=== PATIENT | male | born 1990 | race Caucasian/White ===

== ENCOUNTER 2018-08-04 11:35 | Outpatient (REF) | payer BC, SELFPAY ==
[2018-08-04 13:14] LABS: COMMENT (LAB VIEW ONLY) 148.64 mg/dL; Microalb ug/mg Crea 4.4 ug/mg Cr
== END 2018-08-04 11:55 ==
LOC: NCHCN 11:35
PROVIDERS: PCP Family Medicine; Visit Provider Family Medicine
DX: E11.9 Type 2 diabetes mellitus without complications (principal)
CPT/HCPCS: 82043; 82570

== ENCOUNTER 2019-08-21 18:26 | Outpatient (REF) | payer BC, SELFPAY ==
[2019-08-21 19:35] LABS: COMMENT (LAB VIEW ONLY) 56.02 mg/dL; Microalb ug/mg Crea 4.8 ug/mg Cr
== END 2019-08-21 18:46 ==
LOC: NCHCN 18:26
PROVIDERS: PCP Family Medicine; Visit Provider Family Medicine
DX: E11.319 Type 2 diabetes mellitus with unspecified diabetic retinopathy without macular edema (principal)
CPT/HCPCS: 82043; 82570

== ENCOUNTER 2021-08-20 15:24 | Outpatient (REF) | payer BC, SELFPAY ==
--- OUTSIDE RECORDS SUMMARY | 2021-08-20 15:33 | XMS_ITS ---
:1990 Author Care Team Providers Name Role Phone TESS Keira RICKS Primary Care Provider [phone] [facility] Primary Care Provider [phone] Allergies Code Code System Name Reaction Severity Status Onset 123936 RxNorm House Dust ? ? Active ? 5640 RxNorm Ibuprofen Anaphylaxis ? Active ? Medications Name Status Start Date Stop Date ? ? Accu-Chek Guide test strips Active ? Not available TEST FOUR TIMES A DAY amoxicillin 875 mg-potassium Completed ? clavulanate 125 mg tablet azithromycin 250 mg tablet Completed ? 01/28 Breo Ellipta 100 mcg-25 mcg/dose powder for inhalation Active ? Not available INHALE 1 PUFF BY MOUTH DAILY budesonide 0.5 mg/2 mL suspension for nebulization Active ? Not available USE 1 RESPULE IN SINUS RINSE TWICE DAILY cefpodoxime 200 mg tablet Completed ? 2018 ciprofloxacin 500 mg tablet Completed ? 07/05 Dulera 200 mcg-5 mcg/actuation HFA aerosol inhaler Completed 02/05/2017 03/07/2017 2 puffs Puff: bid - twice daily Dupixent 300 mg/2 mL Active ? Not availab le subcutaneous syringe epinephrine 0.3 mg/0.3 mL Active ? Not av ailable injection, auto-injector FreeStyle Willie 14 Day Sensor kit Active ? Not available USE DIRECTED EVERY 14 DAYS Glucagon Emergency Kit 1 mg Active ? Not available solution for injection Humalog U-100 Insulin 100 unit/mL subcutaneous solution Active ? Not available INJECT CONTINUOUSLY VIA PUMP AT 125 UNITS mupirocin 2 % topical ointment Active ? N ot available APPLY TOPICALLY DIRECTED TWO TIMES A DAY [id number] 3.5 Completed ? 10/28/2018 mg-10,000 unit/mL-1 % ear drops,susp Nucala 100 mg subcutaneous solution Completed ? 10/28/2018 Inject 100 mg every 4 weeks by subcutaneous route. OneTouch Ultra Blue Test Strip Active ? N ot available TEST BLOOD GLUCOSE FOUR TIMES A DAY oxycodone 5 mg tablet Completed ? 10/28/2018 prednisone 10 mg tablet Completed ? 07/22/19 19 prednisone 20 mg tablet Completed ? 07/22/19 19 ProAir HFA 90 mcg/actuation Active ? Not available aerosol inhaler Spiriva Respimat 1.25 mcg/actuation solution for inhalation Completed 01/29/2017 03/26/2017 2 (two) Puff Puff: daily TRUEplus Insulin 1 mL 31 gauge x Active ? Not available 11/17 syringe Trulicity 0.75 mg/0.5 mL subcutaneous pen injector Active ? Not available INJECT 1 PEN SUBCUTANEOUSLY ONCE A WEEK Problems Name Status Onset Date Source ? Nasal Polyp Active 01/24/2018 ? Allergic Rhinitis Active 01/24/2018 ? Pneumonia Active 01/24/2018 ? Pneumonitis Active 01/24/2018 ? Dyspnea Active 01/24/2018 ? Tomography - Chest Abnormal Active 01/24/2018 ? Asthma Active ? History Tropical Pulmonary Eosinophilia Active ? History Placentography Abnormal Unknown ? History Procedure by Method Active ? History Procedures None recorded. Results Lab Results None recorded. Past Encounters None recorded. Social History Tobacco Smoking Status Never Smoker Vaccine List None recorded. Plan of Care Reminders Provider Appointments None ? ? recorded. Lab None ? ? recorded. Referral None ? ? recorded. Procedures None ? ? recorded. Surgeries None ? ? recorded. Imaging None ? ? recorded. Vitals 10/28/2018 03:30PM Office 30 Height Weight BMI Blood Pressure 175.26 cm 95.85 kg 31.2 kg/m2 126/60 mm[Hg] 07/22/2018 01:00PM Office 30 Height Weight BMI Blood Pressure 175.26 cm 93.4 kg 30.4 kg/m2 128/72 mm[Hg] 06/24/2018 03:30PM Injection 30 Height Weight BMI Blood Pressure 175.26 cm 93.6 kg 30.5 kg/m2 118/72 mm[Hg] 05/20/2018 03:30PM Office 30 Height Weight BMI Blood Pressure 175.26 cm 92.6 kg 30.1 kg/m2 110/68 mm[Hg] 04/08/2018 03:30PM Office 30 Height Weight BMI Blood Pressure 175.26 cm 92.85 kg 30.2 kg/m2 130/70 mm[Hg] 02/25/2018 08:00AM Any 30 Height Weight BMI Blood Pressure 175.26 cm 93.5 kg 30.4 kg/m2 118/70 mm[Hg] 01/28/2018 09:00AM Injection 30 Height Weight BMI Blood Pressure 175.26 cm 94.8 kg 30.9 kg/m2 122/78 mm[Hg] 11/26/2017 08:00AM Injection 30 Height Weight BMI Blood Pressure 175.26 cm 94.35 kg 30.7 kg/m2 130/80 mm[Hg] 09/21/2017 Height Weight Blood Pressure 175.26 cm 99.34 kg 110/70 mm[Hg] 08/27/2017 Height Weight Blood Pressure 175.26 cm 98.88 kg 110/60 mm[Hg] 07/23/2017 Blood Pressure 132/68 mm[Hg] 07/23/2017 Height Weight 175.26 cm 98.66 kg 06/18/2017 Height Weight Blood Pressure 175.26 cm 99.56 kg 118/78 mm[Hg] 05/18/2017 Height Weight Blood Pressure 175.26 cm 98.66 kg 138/80 mm[Hg] 04/23/2017 Height Weight Blood Pressure 175.26 cm 99.34 kg 138/80 mm[Hg] 03/26/2017 Height Weight Blood Pressure 175.26 cm 95.25 kg 140/80 mm[Hg] 02/18/2017 Height Weight Blood Pressure 175.26 cm 95.05 kg 112/70 mm[Hg] 02/05/2017 Weight Blood Pressure 94.35 kg 110/60 mm[Hg] 01/29/2017 Height Weight Blood Pressure 175.26 cm 95.25 kg 140/84 mm[Hg] 04/08/2016 Height Weight Blood Pressure 175.26 cm 94.8 kg 124/62 mm[Hg] 03/12/2016 Height Weight 175.26 cm 93.01 kg 03/12/2016 Blood Pressure 116/74 mm[Hg]
[2021-08-20 19:56] LABS: COMMENT (LAB VIEW ONLY) 111.35 mg/dL; Microalb ug/mg Crea 6.7 ug/mg Cr
[2021-08-20 20:05] LABS: Anion Gap 9.7 mmol/L (3-11); BUN 12 mg/dL (7-18); CO2 25.3 mmol/L (21.0-32.0); CREATININE 1.1 mg/dL (0.70-1.30); Calcium 9.3 mg/dL (8.5-10.1); Chloride 105 mmol/L (98-107); Glucose 125 mg/dL (74-106); Potassium 3.9 mmol/L (3.5-5.1); Sodium 140 mmol/L (136-145)
[2021-08-22 10:24] LABS: HIV-1/2 Ag & Ab Screen Negative (Negative)
[2021-08-22 10:58] LABS: Hepatitis C Ab w Rflx HCV PCR Negative (Negative)
== END 2021-08-20 15:25 | disposition home or self-care (01) ==
LOC: NCHCN 15:24
PROVIDERS: PCP Family Medicine; Visit Provider Family Medicine
DX: E10.319 Type 1 diabetes mellitus with unspecified diabetic retinopathy without macular edema (principal); Z00.00 Encounter for general adult medical examination without abnormal findings; Z11.4 Encounter for screening for human immunodeficiency virus [HIV]; Z11.59 Encounter for screening for other viral diseases
CPT/HCPCS: 80048; 86803; 87389; 82043; 82570

== ENCOUNTER 2022-07-31 09:52 | Outpatient (REF) | payer BC, SELFPAY ==
[2022-07-31 19:03] LABS: COMMENT (LAB VIEW ONLY) 9.63 mg/dL; Microalb ug/mg Crea 19.7 ug/mg Cr
== END 2022-07-31 09:53 | disposition home or self-care (01) ==
LOC: NCHCN 09:52
PROVIDERS: PCP Family Medicine; Visit Provider Family Medicine
DX: E10.319 Type 1 diabetes mellitus with unspecified diabetic retinopathy without macular edema (principal)
CPT/HCPCS: 82043; 82570

== ENCOUNTER 2023-08-13 17:10 | Outpatient (REF) | payer BC, SELFPAY ==
[2023-08-13 20:05] LABS: Hemoglobin A1C 9.7 % (<5.7)
[2023-08-13 20:06] LABS: Microalb ug/mg Crea 1.5 ug/mg Cr
[2023-08-13 20:41] LABS: ALT 63 U/L (16-63); AST 21 U/L (15-37); Alkaline Phosphatase 75 U/L (46-116); Anion Gap 12.3 mmol/L (3-11); BUN 17 mg/dL (7-18); Bilirubin, Total 0.4 mg/dL (0.2-1.0); CO2 24.7 mmol/L (21.0-32.0); Calcium 9.6 mg/dL (8.5-10.1); Chloride 104 mmol/L (98-107); Estimated GFR 101.28 (mL/min/1.73m2); Glucose 212 mg/dL (74-106); Potassium 4.1 mmol/L (3.5-5.1); Sodium 141 mmol/L (136-145); Total Protein 6.9 g/dL (6.4-8.2)
== END 2023-08-13 17:11 | disposition home or self-care (01) ==
LOC: NCHCN 17:10
PROVIDERS: PCP Family Medicine; Visit Provider Family Medicine
DX: E10.319 Type 1 diabetes mellitus with unspecified diabetic retinopathy without macular edema (principal)
CPT/HCPCS: 80053; 82043; 82570; 83036

== ENCOUNTER 2024-06-12 15:47 | Outpatient (REF) | payer BC, SELFPAY ==
[2024-06-12 20:45] LABS: ALT 36 U/L (16-63); Calculated LDL 110 mg/dL (<100); Cholesterol 184 mg/dL (<200); HDL Cholesterol 48 mg/dL (40-60); Triglyceride 134 mg/dL (<150)
== END 2024-06-12 15:48 | disposition home or self-care (01) ==
LOC: NCHCN 15:47
PROVIDERS: PCP Family Medicine; Visit Provider Family Medicine
DX: E78.1 Pure hyperglyceridemia (principal)
CPT/HCPCS: 80061; 84460

== ENCOUNTER 2024-08-20 16:44 | Emergency (ER) | payer BC, SELFPAY ==
[2024-08-20 16:56] VITALS: BP 149/79; PULSE 99; RESP 20; TEMP 38.2; O2SAT 94
[2024-08-20 17:04] VITALS: BP 149/79; PULSE 99; RESP 20; TEMP 38.2; O2SAT 94
--- NOTE | 2024-08-20 17:30 | DI.RAD_ITS ---
Exam(s) XR CHEST 2V PA LATERAL EXAM: XR CHEST 2V PA LATERAL CLINICAL HISTORY: shortness of breath TECHNIQUE: 2D digital imaging was performed of the chest. Two images were obtained. PA and lateral views were obtained. COMPARISON: CR CHEST 2 VIEWS PA,LAT from 02/03/2017 FINDINGS: MEDIASTINUM: Normal. HEART: Normal. PULMONARY VASCULATURE: Normal. LUNGS: Clear. PLEURAL SPACE: No pleural effusion or pneumothorax. BONE:Within normal limits for the patient's age. OTHER FINDINGS:Normal. IMPRESSION: No acute pulmonary findings. DATA REPOSITORY: RADIATION DOSE DELIVERED:
[2024-08-20 17:59] LABS: COVID-19 PCR Negative (Negative); Influenza A PCR Positive (Negative); Influenza B PCR Negative (Negative); RSV PCR Negative (Negative)
[2024-08-20 18:00] LABS: Source Nasopharynx
[2024-08-20 18:11] LABS: BE (Venous) -2 mmol/L (-2-3); HCO3 (Venous) 23 mmol/L (23-28); O2 Sat (Venous) 93 %; TCO2 (Venous) 20 mmol/L (24-29); pCO2 (Venous) 33 mmHg (41-51); pH (Venous) 7.45 (7.31-7.41); pO2 (Venous) 61 mmHg
[2024-08-20 18:13] LABS: Abs Immature Grans 0.03 10^3/uL (0.0-0.06); Absolute Basophil Count 0.06 10^3/uL (0.0-0.2); Absolute Eosinophil Count 0.02 10^3/uL (0.0-0.7); Absolute Lymphocyte Count 0.72 10^3/uL (1.2-3.4); Absolute Monocyte Count 0.98 10^3/uL (0.1-0.8); Absolute Neutrophil Count 5.49 10^3/uL (1.2-6.7); Basophils % 0.8 %; Eosinophils % 0.3 %; HCT 41.8 % (40.0-50.0); Immature Grans % 0.4 %; Lymphocytes % 9.9 %; MCH 31.5 pg (27.0-33.0); MCHC 35.9 % (32.0-36.0); MCV 88 fL (80-95); MPV 10.8 fL (8.0-11.0); Monocytes % 13.4 %; Neutrophils % 75.2 %; Platelet Count 206 10^3/uL (130-400); RBC 4.76 10^6/uL (4.36-5.78); RDW 11.8 % (11.8-14.1); RDW-SD 38.1 fL
[2024-08-20] MEDS: Acetaminophen 325 MG TAB 650 MG PO (18:16)
[2024-08-20 18:17] VITALS: RESP 8
[2024-08-20] MEDS: Albuterol/Ipratropium 3 ML UPD VIAL UPD (18:17)
[2024-08-20] MEDS: predniSONE 20 MG TAB 40 MG PO (18:17)
[2024-08-20 18:30] LABS: ALT 98 U/L (16-63); AST 43 U/L (15-37); Albumin 3.6 g/dL (3.4-5.0); Alkaline Phosphatase 108 U/L (46-116); Anion Gap 13.1 mmol/L (3-11); BUN 10 mg/dL (7-18); Bilirubin, Total 0.52 mg/dL (0.2-1.0); CO2 22.9 mmol/L (21.0-32.0); CREATININE 1.2 mg/dL (0.70-1.30); Calcium 8.7 mg/dL (8.5-10.1); Chloride 102 mmol/L (98-107); Estimated GFR 80.88 (mL/min/1.73m2); Glucose 223 mg/dL (74-106); Potassium 3.8 mmol/L (3.5-5.1); Sodium 138 mmol/L (136-145)
[2024-08-20 19:12] LABS: Bilirubin Negative (Negative); Blood Negative (Negative); Clarity Clear (Clear); Glucose 100 mg/dL (Negative); Ketones 40 mg/dL (Negative); Leukocyte Esterase Negative (Negative); Nitrite Negative (Negative); Specific Gravity 1.025 (1.005-1.025)
[2024-08-20 19:20] LABS: Bacteria Rare HPF (Negative); C & S Indicated? No; Casts Negative LPF (Negative); Crystals Negative HPF (Negative); Epithelial Cells Rare HPF (Negative); Mucus Trace (Negative); RBC 0-2 HPF (0-2); WBC 0-2 HPF (0-5)
[2024-08-20] MEDS: Inhaler, Assist Device 1 EACH MC (19:38)
[2024-08-20 19:40] VITALS: BP 142/72; PULSE 90; RESP 20; O2SAT 95
--- NOTE | 2024-08-20 19:53 | DI.VRAD_ITS ---
PROCEDURE INFORMATION: Exam: XR Chest Exam date and time: 08/20/2024 7:14 PM Age: 34 years old Clinical indication: Shortness of breath TECHNIQUE: Imaging protocol: Radiologic exam of the chest. Views: 2 views. COMPARISON: No relevant prior studies available. FINDINGS: Lungs: Unremarkable. No consolidation. Pleural spaces: Unremarkable. No pleural effusion. No pneumothorax. Heart/Mediastinum: Unremarkable. No cardiomegaly. Bones/joints: Unremarkable. IMPRESSION: No acute findings. Dictated and Authenticated by: Mohsen Marcial MD. Orderin Jordan Hill MD
--- NOTE | 2024-08-20 21:20 | W.ED.GENAD ---
Discharge Plan Discharge Details Chief Complaint: RespSymp Primary Care Provider: Elizabeth Oneil ED Provider: Liz Ortega Home Meds and New Rx's Prescriptions: New Humulin 70/30 U-100 KwikPen 100 unit/mL (70-30) insulin pen 10 unit subcut QAM Qty: 15 0RF Rx Instructions: use per sliding scale while taking prednisone prednisone 20 mg tablet 40 mg PO ONCE Qty: 10 0RF Continued fluticasone furoate-vilanterol [Breo Ellipta] 200-25 mcg/dose blister with device 1 inh inhalation DAILY Qty: 60 12RF glucagon HCl [Glucagon (HCl) Emergency Kit] 1 mg recon soln See Rx Instructions subcut DIRECTED PRN Rx Instructions: subcut as directed PRN; until target blood sugar attained (DME) blood sugar diagnostic Strip See Rx Instructions .ROUTE .MEDSUPPLY Qty: 10 Rx Instructions: As directed (DME) insulin syringe-needle U-100 [TRUEplus Insulin] 1 mL 31 gauge x 5/16 syringe See Rx Instructions .ROUTE .MEDSUPPLY Qty: 10 Rx Instructions: As directed budesonide 0.5 mg/2 mL suspension for nebulization See Rx Instructions inhalation DIRECTED Patient Comments: patient states uses f0r nasal rinse Rx Instructions: inhalation as directed; lisinopril See Rx Instructions .ROUTE .COMPLEX Rx Instructions: as directed; albuterol sulfate [ProAir HFA] 90 mcg/actuation HFA aerosol inhaler 2 puff inhalation Q4H PRN (Reason: shortness of breath or wheezing) Qty: 8.5 12RF Dupixent Syringe 300 mg/2 mL syringe 300 mg subcut Q2W Qty: 4 12RF Humalog U-100 Insulin 100 UNIT/1 ML cartridge 85 unit SQ INFUSION Qty: 0 0RF Patient Comments: 43 UNITS IN 24 HOURS. 1.7-1.8 UNITS PER HOUR. BOLUS 1 UNIT PER Q8 CARBS PER MEAL Rx Instructions: pt manages his own pump losartan 25 mg tablet 25 mg PO DAILY fenofibrate nanocrystallized 48 mg tablet 48 mg PO DAILY prednisone 20 mg tablet 20 mg PO PRN Patient Comments: TAKE TWO TABLETS BY MOUTH EVERY DAY FOR 7 DAYS Discharge Instructions Additional Instructions: He is a insulin per sliding scale to adjust for prednisone increase in blood sugar Tylenol for fever control per package instructions Use your albuterol inhaler 2 puffs every 4-6 hours with spacer Continue using your Breo elliptica inhaler Keep yourself hydrated at least eight 8 ounce glasses of water daily and return earlier with new or worsening complaints Referrals: Elizabeth Oneil MD [Primary Care Provider] - 1 day Discharge Data Discharge Date/Time-TO BE ENTERED AT DEPARTURE: 08/20/24 19:40 HPI General Date/Time Provider Initiated Documentation: 08/20/24 17:05. HPI Narrative: The patient is a 34-year-old male with a history of type 1 diabetes and asthma, presenting with symptoms of headache, cough, fever, chills, and chest pain associated with coughing, all persisting for the past 24 hours. He reports no known sick contacts. His family experienced abdominal symptoms without respiratory issues last week. He has been managing his symptoms at home with his inhaler. His blood glucose levels have been elevated, in the 200s, at home. Related Data Home Medications ?Medication ?Instructions ?Recorded ?Confirmed insulin lispro 100 unit/mL 85 unit (0.85 mL) SQ INFUSION ##0 02/05/16 08/20/24 subcutaneous cartridge (Humalog U-100 Insulin) blood sugar diagnostic #10 ea 01/27/21 08/20/24 glucagon HCl 1 mg solution for See Rx Instructions subcut 01/27/21 08/20/24 injection (Glucagon (HCl) DIRECTED PRN Emergency Kit) insulin syringe-needle U-100 1 mL #10 ea 01/27/21 08/20/24 31 gauge x 5/16 (TRUEplus Insulin) budesonide 0.5 mg/2 mL suspension See Rx Instructions inhalation 08/15/21 08/20/24 for nebulization DIRECTED fluticasone furoate 200 1 inh inhalation DAILY #60 ea 08/15/21 08/20/24 mcg-vilanterol 25 mcg/dose inhalation powder (Breo Ellipta) dupilumab 300 mg/2 mL subcutaneous 300 mg (2 mL) subcut Q2W #4 mL 07/19/23 08/20/24 syringe (Dupixent) albuterol sulfate 90 mcg/actuation 2 puff inhalation Q4H PRN 09/27/23 08/20/24 aerosol inhaler (ProAir HFA) shortness of breath or wheezing #8.5 grams lisinopril See Rx Instructions .Route .COMPLEX 09/27/23 08/20/24 fenofibrate nanocrystallized 48 mg 48 mg PO DAILY 08/20/24 08/20/24 tablet insulin NPH-regular 70-30 U-100 10 unit (0.1 mL) subcut QAM #15 mL 08/20/24 insulin 100 unit/mL subcutaneous pen (Humulin 70/30 U-100 KwikPen) losartan 25 mg tablet 25 mg PO DAILY 08/20/24 08/20/24 prednisone 20 mg tablet 20 mg PO PRN 08/20/24 08/20/24 prednisone 20 mg tablet 40 mg (2 x 20 mg) PO ONCE #10 tabs 08/20/24 Previous Rx's ?Medication ?Instructions ?Recorded insulin lispro 100 unit/mL 85 unit (0.85 mL) SQ INFUSION ##0 02/05/16 subcutaneous cartridge (Humalog U-100 Insulin) fluticasone furoate 200 1 inh inhalation DAILY #60 ea 08/15/21 mcg-vilanterol 25 mcg/dose inhalation powder (Breo Ellipta) dupilumab 300 mg/2 mL subcutaneous 300 mg (2 mL) subcut Q2W #4 mL 07/19/23 syringe (Dupixent) albuterol sulfate 90 mcg/actuation 2 puff inhalation Q4H PRN 09/27/23 aerosol inhaler (ProAir HFA) shortness of breath or wheezing #8.5 grams insulin NPH-regular 70-30 U-100 10 unit (0.1 mL) subcut QAM #15 mL 08/20/24 insulin 100 unit/mL subcutaneous pen (Humulin 70/30 U-100 KwikPen) prednisone 20 mg tablet 40 mg (2 x 20 mg) PO ONCE #10 tabs 08/20/24 Allergies Allergy/AdvReac Type Severity Reaction Status Date / Time pollen extracts Allergy Intermediate clammy Verified 08/20/24 17:08 ibuprofen Allergy Anaphylaxis Verified 08/20/24 17:08 ketorolac Allergy Anaphylaxis Verified 08/20/24 17:08 nicotine Allergy Dizziness/L Verified 08/20/24 17:08 ighthead house dust AdvReac sneezing Verified 08/20/24 17:08 General Stated Complaint: RespSymp KAYLEE: 3 Exam Narrative Exam Narrative: General Appearance: Patient is alert and oriented, not in any acute distress. Vital signs: Within normal limits. HEENT: Within normal limits. Respiratory: Lungs are clear to auscultation. Cardiovascular: Heart rate and rhythm are regular. Gastrointestinal: No tenderness in the abdomen. Skin: No rashes or lesions on the skin. Neurological: Normal. Course Vital Signs Vital signs: Vital Signs Temperature 38.2 C H 08/20/24 16:56 Pulse 99 H 08/20/24 16:56 Respiratory Rate 20 08/20/24 16:56 Blood Pressure 149/79 H 08/20/24 16:56 Pulse Oximetry 94 08/20/24 16:56 Temperature 38.2 C H 08/20/24 17:04 Temperature Source Oral 08/20/24 17:04 Pulse 90 08/20/24 19:40 Respiratory Rate 20 08/20/24 19:40 Respiratory Effort Normal 08/20/24 17:57 Respiratory Depth Normal 08/20/24 17:57 Blood Pressure 142/72 H 08/20/24 19:40 Blood Pressure Position Sitting 08/20/24 17:04 Pulse Oximetry 95 08/20/24 19:40 Oxygen Delivery Method Room Air 08/20/24 18:17 Oxygen Flow Rate 0 08/20/24 18:17 Pain Level 5 08/20/24 18:16 Lab/Test Results Lab/Test Results: Laboratory Tests Range/Units 08/20/24 08/20/24 17:00 18:05 WBC (4.4-10.8) 10^3/uL 7.30 RBC (4.36-5.78) 10^6/uL 4.76 Hgb (13.5-17.5) g/dL 15.0 Hct (40.0-50.0) % 41.8 MCV (80-95) fL 88 MCH (27.0-33.0) pg 31.5 MCHC (32.0-36.0) % 35.9 RDW (11.8-14.1) % 11.8 Plt Count (130-400) 10^3/uL 206 MPV (8.0-11.0) fL 10.8 Immature Gran % % 0.4 Neutrophils % % 75.2 Lymphocytes % % 9.9 Monocytes % % 13.4 Eosinophils % % 0.3 Basophils % % 0.8 Nucleated RBC % (0.0-0.3) % 0.0 Absolute Neutrophils (1.2-6.7) 10^3/uL 5.49 Absolute Lymphocytes (1.2-3.4) 10^3/uL 0.72 L Absolute Monocytes (0.1-0.8) 10^3/uL 0.98 H Absolute Eosinophils (0.0-0.7) 10^3/uL 0.02 Absolute Basophils (0.0-0.2) 10^3/uL 0.06 VBG pH (7.31-7.41) 7.45 H VBG pCO2 (41-51) mmHg 33 L VBG pO2 mmHg 61 VBG HCO3 (23-28) mmol/L 23 VBG Total CO2 (24-29) mmol/L 20 L VBG O2 Saturation % 93 VBG Base Excess (-2-3) mmol/L -2 Sodium (136-145) mmol/L 138 Potassium (3.5-5.1) mmol/L 3.8 Chloride (98-107) mmol/L 102 Carbon Dioxide (21.0-32.0) mmol/L 22.9 Anion Gap (3-11) mmol/L 13.1 H BUN (7-18) mg/dL 10 Creatinine (0.70-1.30) mg/dL 1.2 Est GFR (CKD-EPI 2020) (mL/min/1.73m2) 80.88 Glucose (74-106) mg/dL 223 H Calcium (8.5-10.1) mg/dL 8.7 Total Bilirubin (0.2-1.0) mg/dL 0.52 AST (15-37) U/L 43 H ALT (16-63) U/L 98 H Alkaline Phosphatase (46-116) U/L 108 Total Protein (6.4-8.2) g/dL 7.0 Albumin (3.4-5.0) g/dL 3.6 Urine Color (Yellow) Yellow Urine Clarity (Clear) Clear Urine pH (5-8) 6.0 Ur Specific [place] (1.005-1.025) 1.025 Urine Protein (Neg-Trace) mg/dL 30 H Urine Ketones (Negative) mg/dL 40 H Urine Blood (Negative) Negative Urine Nitrite (Negative) Negative Urine Bilirubin (Negative) Negative Urine Urobilinogen (Up to 0.2) mg/dL 1.0 H Ur Leukocyte Esterase (Negative) Negative Urine RBC (0-2) HPF 0-2 Urine WBC (0-5) HPF 0-2 Ur Epithelial Cells (Negative) HPF Rare Urine Crystals (Negative) HPF Negative Urine Bacteria (Negative) HPF Rare Urine Casts (Negative) LPF Negative Urine Mucus (Negative) Trace Ur Culture Indicated? No Urine Glucose (Negative) mg/dL 100 H COVID-19 Source Nasopharynx SARS-CoV-2 (PCR) (Negative) Negative Influenza Type A (PCR) (Negative) Positive A Influenza Type B (PCR) (Negative) Negative RSV (PCR) (Negative) Negative Medical Decision Making Laboratory Studies Blood sugar 223. Mild elevation in LFTs. Urinalysis shows mild ketones consistent with likely dehydration, no evidence of DKA. VBG does not show acute abnormality, mild gap. Imaging Chest x-ray does not show evidence of acute abnormality. Initial Assessment: 34-year-old male with type 1 diabetes, asthma, presenting with headache, cough, fever, chills, and chest pain with coughing for the past 24 hours. Denies known sick contacts. Family had abdominal symptoms last week. Blood sugars in the 200s at home. Alert and oriented, no acute distress, lungs clear, regular cardiac rate and rhythm, no rashes or lesions, no abdominal tenderness. Differential Diagnosis: - Influenza: Headache, cough, fever, chills, chest pain with coughing. Symptomatic improvement after DuoNeb and Tylenol. No leukocytosis. Discharged without hypoxia, no acute distress. Declined Tamiflu. Supportive care at home. - Asthma: Chest pain with coughing. Symptomatic improvement after DuoNeb. Will use DuoNebs at home. Prescribed prednisone. - Type 1 Diabetes Mellitus: Blood sugars in the 200s. VBG ordered, no acute abnormality, mild gap. No DKA. Urinalysis with mild ketones, likely dehydration. Given hydration. Glucose 223. Supplied with insulin for sliding scale. Encouraged to follow up with primary care physician. ED Course: - Chest x-ray: No acute abnormality (read by me). - Urinalysis: Mild ketones, no DKA. - Blood work: No leukocytosis. - VBG: No acute abnormality, mild gap. - Hydration given. - DuoNeb and Tylenol administered: Symptomatic improvement. - Glucose 223. - Insulin supplied for sliding scale. - Prednisone prescribed. - Discharged home without hypoxia, no acute distress. Final Assessment: Patient presented with symptoms suggestive of influenza and asthma exacerbation. Blood glucose management addressed. Discharged with supportive care instructions and medications. Clinical Impression: - Influenza - Asthma - Type 1 Diabetes Mellitus Disposition: - Discharge - Follow-Up: Primary care physician closely in the outpatient setting. MDM Components Evaluation: - Number of Differential Diagnoses or Management Options: Influenza, Asthma, Type 1 Diabetes Mellitus. - Amount and Complexity of Data Reviewed: Chest x-ray, urinalysis, blood work, VBG. - Risk of Complication and Morbidity or Mortality: Managed risk of DKA, addressed asthma exacerbation, supportive care for influenza. Quality:SDOH Health Related Social Needs: No Data to Display PFSH All Active Problems (Updated 08/13/21 @ 12:53 by Radha Milner MD) Chronic sinusitis (Acute) Asthma (Chronic) DM type 1, not at goal (Acute) Medical History (Updated 08/13/21 @ 12:53 by Radha Milner MD) Abnormal tomography of chest Dyspnea Allergic rhinitis Nasal polyp Influenza B Viral pneumonitis Social History (Updated 06/18/21 @ 09:49 by Ana Lynn) Smoking/Tobacco Use Status: Never Smoking risk assessment performed?: Yes Drug use: Never Substance use type: does not use Pets and animals: Yes Pets and animals: cat(s) and dog(s) Do you feel safe in your relationship?: Yes
== END 2024-08-20 19:40 | disposition home or self-care (01) ==
LOC: ER 17:18
PROVIDERS: Emergency Medicine; Emergency Provider Physician Assistant; PCP Family Medicine
DX: J10.1 Influenza due to other identified influenza virus with other respiratory manifestations (principal); I10 Essential (primary) hypertension; E10.9 Type 1 diabetes mellitus without complications; Z79.4 Long term (current) use of insulin
CPT/HCPCS: 36415; 80053; 82805; 87637; 94640; 99284; 71046; 81003; 81015; 85025; J7512; J7620

== ENCOUNTER 2024-10-23 16:02 | Outpatient (REF) | payer BC, SELFPAY ==
[2024-10-23 16:10] LABS: COMMENT (LAB VIEW ONLY) 96.02 mg/dL; Microalb ug/mg Crea 6.1 ug/mg Cr
== END 2024-10-23 16:03 | disposition home or self-care (01) ==
LOC: NCHCN 16:02
PROVIDERS: PCP Family Medicine; Visit Provider Family Medicine
DX: E10.9 Type 1 diabetes mellitus without complications (principal)
CPT/HCPCS: 82043; 82570